=== PATIENT | female | born 2000 | race Caucasian/White ===

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

== ENCOUNTER 2019-02-10 15:53 | Emergency (ER) | payer OTHER ==
--- NOTE | 2019-02-10 16:14 | PDOC ---
History of Present Illness - General Chief Complaint: Syncope/Near Syncope Stated Complaint: SYNCOPE Time Seen by Provider: 02/10/19 16:00 - History of Present Illness Initial Comments: 02/10/19 16:10 18 yo F with no significant pmh BIBEMS with lightheadedness. EMS reports patient with complaint of lightheadedness. Noted to be diaphoretic, rapid breathing on arrival. Patient also with SBP 103, finger stick glucose 120. Patient received 400 ml NS. At approximately 2:00 PM patient states that she was standing at bus[place] on the way to work when she started having racing thoughts, then SOB, numbness/burning in fingertips and toes, chest tightness/ pressure, and sudden LOC. Does not recall head trauma, but patient with posterior, unremitting, right sided headache. Patient does not recall how long she was unconscious. Was assisted to feet and ambulated to bus. While on bus, patient symptoms recurred with absent LOC, and patient got off bus, and called EMS. Symptoms now gradually improved. Similar presentation 02-24-18 with negative CTH. Patient denies vision change, palpitations, convulsions, cough, wheezing, orthopena, PND, leg swelling/pain, N/V, F,C, urinary complaints, hematuria, BPR , abdominal pain, diarrhea, constipation, weakness. PMHx: as noted above ROS: as noted SHx: Denies Etoh, IVDA, tobacco use Allergies: NKDA Past History - Past Medical History Allergies/Adverse Reactions: Allergies Allergy/AdvReac Type Severity Reaction Status Date / Time No Known Allergies Allergy Verified 02/10/19 16:47 Home Medications: Ambulatory Orders NK [No Known Home Medication] 02/25/18 COPD: No - Suicide/Smoking/Psychosocial Hx Smoking History: Never smoked Have you smoked in the past 12 months: No Hx Alcohol Use: No Drug/Substance Use Hx: No Substance Use Type: None Review of Systems - Review of Systems Comments:: 02/10/19 16:10 GENERAL/CONSTITUTIONAL: No fever or chills. No weakness. HEAD, EYES, EARS, NOSE AND THROAT: No change in vision. No ear pain or discharge. No sore throat. CARDIOVASCULAR: No chest pain or shortness of breath RESPIRATORY: No cough, wheezing, or hemoptysis. GASTROINTESTINAL: No nausea, vomiting, diarrhea or constipation. GENITOURINARY: No dysuria, frequency, or change in urination. MUSCULOSKELETAL: No joint or muscle swelling or pain. No neck or back pain. SKIN: No rash NEUROLOGIC: No headache, vertigo, loss of consciousness, or change in strength/ sensation. ENDOCRINE: No increased thirst. No abnormal weight change HEMATOLOGIC/LYMPHATIC: No anemia, easy bleeding, or history of blood clots. ALLERGIC/IMMUNOLOGIC: No hives or skin allergy. *Physical Exam - Vital Signs Last Vital Signs Temp Pulse Resp BP Pulse Ox 97.7 F 69 16 105/52 L 100 02/10/19 16:00 02/10/19 16:00 02/10/19 16:00 02/10/19 16:00 02/10/19 16:00 - Physical Exam Comments: 02/10/19 16:11 GENERAL: Awake, alert, and fully oriented, in no acute distress HEAD: + right posterior occipital ttp. No signs of trauma, normocephalic, atraumatic EYES: PERRLA, EOMI, sclera anicteric, conjunctiva clear ENT: Neg c-spine ttp. Auricles normal inspection, hearing grossly normal, nares patent, oropharynx clear without exudates. Moist mucosa NECK: Normal ROM, supple, no lymphadenopathy, JVD, or masses LUNGS: No distress, speaks full sentences, clear to auscultation bilaterally HEART: Regular rate and rhythm, normal S1 and S2, no murmurs, rubs or gallops, peripheral pulses normal and equal bilaterally. ABDOMEN: Soft, nontender, normoactive bowel sounds. No guarding, no rebound. No masses BACK: Neg midline or paraspinal ttp. Neg stepoff, bony deformity, skin change. Nml axilla. EXTREMITIES : Normal inspection, Normal range of motion, no edema. No clubbing or cyanosis. NEUROLOGICAL: Cranial nerves II through XII grossly intact. Normal speech, normal gait, no focal sensorimotor deficits SKIN: Warm, Dry, normal turgor, no rashes or lesions noted ED Treatment Course - LABORATORY CBC & Chemistry Diagram: 02/10/19 16:50 02/10/19 16:50 - ADDITIONAL ORDERS Additional order review: Laboratory Results 02/10/19 02/10/19 02/10/19 17:30 16:50 16:50 Sodium 142 Potassium 3.8 Chloride 111 H Carbon Dioxide 21 Anion Gap 9 BUN 11.0 Creatinine 0.7 Est GFR (CKD-EPI)AfAm 145.58 Est GFR (CKD-EPI)NonAf 125.60 Random Glucose 77 Calcium 8.9 Total Bilirubin 0.8 AST 14 L ALT 17 Alkaline Phosphatase 90 Creatine Kinase 104 Troponin I < 0.02 Total Protein 7.8 Albumin 4.2 TSH 1.07 Serum , Qual Urine Color [place] Urine Appearance Cloudy Urine pH 6.5 D Ur Specific [place] 1.015 Urine Protein 1+ H Urine Glucose (UA) Negative Urine Ketones 3+ H Urine Blood 3+ H Urine Nitrite Negative Urine Bilirubin Negative Urine Urobilinogen 1.0 Ur Leukocyte Esterase Trace Urine WBC (Auto) 14 Urine RBC (Auto) 14 Urine Casts (Auto) 15 U Epithel Cells (Auto) 14.3 Urine Bacteria (Auto) 472.9 02/10/19 16:50 Sodium Potassium Chloride Carbon Dioxide Anion Gap BUN Creatinine Est GFR (CKD-EPI)AfAm Est GFR (CKD-EPI)NonAf Random Glucose Calcium Total Bilirubin AST ALT Alkaline Phosphatase Creatine Kinase Troponin I Total Protein Albumin TSH Serum , Qual Negative Urine Color Urine Appearance Urine pH Ur Specific [place] Urine Protein Urine Glucose (UA) Urine Ketones Urine Blood Urine Nitrite Urine Bilirubin Urine Urobilinogen Ur Leukocyte Esterase Urine WBC (Auto) Urine RBC (Auto) Urine Casts (Auto) U Epithel Cells (Auto) Urine Bacteria (Auto) 02/10/19 16:50 RBC 4.42 MCV 84.6 MCHC 33.2 RDW 14.2 MPV 7.7 Neutrophils % 80.7 D Lymphocytes % 10.8 D Monocytes % 7.8 Eosinophils % 0.2 D Basophils % 0.5 - RADIOLOGY Radiology Studies Ordered: Category Date Time Status HEAD CT WITHOUT CONTRAST [CT] Stat CT Scan 02/10/19 18:11 Taken - Medications Given in the ED: ED Medications Discontinued Medications Generic Name Dose Route Start Last Admin Trade Name Freq PRN Reason Stop Dose Admin Acetaminophen 1,000 mg 02/10/19 16:46 02/10/19 16:55 Ofirmev Injection - IVPB 02/10/19 16:47 1,000 mg ONCE ONE Administration Sodium Chloride 1,000 mls @ 1,000 mls/hr 02/10/19 16:46 02/10/19 16:55 Normal Saline - IV 02/10/19 17:45 1,000 mls/hr ASDIR STA Administration Sodium Chloride 1,000 ml 02/10/19 19:24 02/10/19 19:50 Normal Saline - IV 02/10/19 19:25 1,000 ml ONCE ONE Administration Medical Decision Making - Medical Decision Making 02/10/19 16:11 18 yo F with no significant pmh BIBEMS with lightheadedness. Vitals wnl, AF, A& Ox3. Physical exam notable for slight riht posterior-superior occiput ttp. Will assess for vasgoval/neurocardiogenic syncope vs. cardiac dysarrythmias, hypoglycemia, electrolyte abnml, metabolic and toxic derangements, acid-base disturbances, infection. Ed Course: 02/10/19 18:12 Laboratory Tests 02/10/19 02/10/19 16:50 16:50 WBC 7.9 Hgb 12.4 Hct 37.4 Troponin I < 0.02 TSH 1.07 02/10/19 19:08 EKG: NSR with absent PATTIE, STD. Nml interval duration and axis. Nml R wave progression. Absent Q waves. 02/10/19 19:31 CTH: Unremarkable Patient tolerating PO intake. Stable for d/c with return precautions. *DC/Admit/Observation/Transfer Diagnosis at time of Disposition: Pre-syncope - Referrals - Patient Instructions Printed Discharge Instructions: DI for Syncope in Adults (Fainting) Additional Instructions: Please return to the emergency department with any new or worsening symptoms or concerns. Please follow up with your primary care physician within 72 hours. - Post Discharge Activity Forms/Work/School Notes: Back to Work
[2019-02-10] MEDS ORDERED: SODIUM CHLORIDE 1,000 ML IV STA (16:46)
[2019-02-10] MEDS ORDERED: ACETAMINOPHEN 1000 MG/100 ML VIAL (NON FORMULARY) IVPB ONE (16:46)
[2019-02-10 16:47] VITALS: TEMP 97.7; BMI 24.2
[2019-02-10] MEDS ORDERED: ACETAMINOPHEN INJECTION 100 ML IVPB ONE (16:50)
[2019-02-10 17:33] LABS: ALBUMIN 4.2 g/dl (3.4-5.0); BILIRUBIN,TOTAL 0.8 mg/dL (0.2-1); CALCIUM 8.9 mg/dL (8.5-10.1); CREATININE 0.7 mg/dL (0.55-1.3); POTASSIUM 3.8 mmol/L (3.5-5.1); TOT PROT 7.8 g/dl (6.4-8.2)
[2019-02-10 17:37] LABS: BASO % 0.5 % (0-2.0); EOS % 0.2 % (0-4.5); HEMATOCRIT 37.4 % (32.4-45.2); HEMOGLOBIN 12.4 GM/dL (10.7-15.3); LYMPH % 10.8 % (8-40); MCH 28.1 pg (25.7-33.7); MCHC 33.2 g/dl (32.0-36.0); MEAN CELL VOLUME 84.6 fl (80-96); MEAN PLT VOLUME 7.7 fl (7.5-11.1); MONO % 7.8 % (3.8-10.2); NEUT % 80.7 % (42.8-82.8); RBC 4.42 M/mm3 (3.60-5.2); RDW 14.2 % (11.6-15.6); WHITE BLOOD COUNT 7.9 K/mm3 (4.0-10.0)
[2019-02-10 18:16] LABS: EPI CELLS 14.3 /HPF (0-5/HPF); HYALINE CASTS 15 /lpf (0-8); PH,URINE 6.5 (5.0-8.0); URINE APPEARANCE CLOUDY; URINE BACTERIA 472.9 /hpf (NEGATIVE); URINE BILIRUBIN NEGATIVE (NEGATIVE); URINE COLOR ORANGE; URINE GLUCOSE (UA) NEGATIVE (NEGATIVE); URINE KETONE 3+ (NEGATIVE); URINE LEUK ESTERASE TRACE (NEGATIVE); URINE NITRITE NEGATIVE (NEGATIVE); URINE PROTEIN 1+ (NEGATIVE); URINE RBC 14 /hpf (0-4); URINE WBC 14 /hpf (0-5)
[2019-02-10 18:37] LABS: PLATELET COUNT 322 K/MM3 (134-434)
--- NOTE | 2019-02-10 18:53 | PDOC ---
Documentation entered by Jim Dodge SCRIBE, acting as scribe for Priscila Cruz MD. Priscila Cruz MD: This documentation has been prepared by the Dar calderón Elijah, SCRIBE, under my direction and personally reviewed by me in its entirety. I confirm that the documentation accurately reflects all work, treatment, procedures, and medical decision making performed by me. Attending Attestation - Resident Resident Name: Nacho Garcia - ED Attending Attestation I have performed the following: I have examined & evaluated the patient, The case was reviewed & discussed with the resident, I agree w/resident's findings & plan - HPI HPI: 02/10/19 17:44 The patient is a 18 year old female with no reported significant medical history who presents to the ED via EMS s/p syncope around 2:00 pm today. The patient reports, while waiting for the bus, she had a sudden onset of lightheadedness that was associated with shortness of breath, chest pain, chest tightness, diaphoresis, numbness and tingling. The patient reports then having an episode of syncope, unsure head injury, currently reports a posterior headache. The patient then got on the bus, had one episode of vomiting. The patient reports that she felt as if this was brought on by racing thoughts of personal matters and notes a previous episode occurring in 2013, was seen at the ER with a negative head CT. Patient was noted to be hypotensive when EMS arrived, was given 400 cc of fluids. The patients glucose on field was 120. Denies fever and chills. Allergies: NKA - Physicial Exam PE: 02/10/19 17:44 GENERAL: Awake, alert, and fully oriented, in no acute distress HEAD: No signs of trauma EYES: PERRLA, EOMI, sclera anicteric, conjunctiva clear ENT: Auricles normal inspection, hearing grossly normal, nares patent, oropharynx clear without exudates. Moist mucosa NECK: Normal ROM, supple, no lymphadenopathy, JVD, or masses LUNGS: Breath sounds equal, clear to auscultation bilaterally. No wheezes, and no crackles HEART: Regular rate and rhythm, normal S1 and S2, no murmurs, rubs or gallops ABDOMEN: Soft, nontender, normoactive bowel sounds. No guarding, no rebound. No masses EXTREMITIES: Normal range of motion, no edema. No clubbing or cyanosis. No cords, erythema, or tenderness NEUROLOGICAL: Cranial nerves II through XII grossly intact. Normal speech SKIN: Warm, Dry, normal turgor, no rashes or lesions noted. - Medical Decision Making 02/10/19 18:45 Pt presents to the ED complaining of syncope today. Syncope occurred in the midst of what seems to be an acute anxiety reaction, and patient has had similar events in the past. Patient is now asymptomatic. Differential includes vasovagal episode, less likely cardiac arrythmia, less likely ectopic . Will check labs and EKG and reassess.
[2019-02-10] MEDS ORDERED: SODIUM CHLORIDE 0.9% 500 ML INFUS.BAG IV ONE (19:24)
[2019-02-10 20:28] VITALS: BP 125/62; PULSE 82
--- NOTE | 2019-02-12 17:16 | EKG ---
Test Reason : Blood Pressure : / mmHG Vent. Rate : 095 BPM Atrial Rate : 095 BPM P-R Int : 138 ms QRS Dur : 086 ms QT Int : 364 ms P-R-T Axes : 046 022 028 degrees QTc Int : 457 ms NORMAL SINUS RHYTHM NORMAL ECG WHEN COMPARED WITH ECG OF 25-FEB-2018 13:53, NO SIGNIFICANT CHANGE WAS FOUND Confirmed by MD SANJUANA, TERE ([id number]) on 02/12/2019 5:15:52 PM Referred By: Confirmed By:TERE WEI MD
== END 2019-02-10 20:28 | disposition home or self-care (01) ==
LOC: JER 15:53
PROC: 3E0337Z Introduction of Electrolytic and Water Balance Substance into Peripheral Vein, Percutaneous Approach (ICD-10-PCS; principal; 2019-02-10)
PROC: 3E033NZ Introduction of Analgesics, Hypnotics, Sedatives into Peripheral Vein, Percutaneous Approach (ICD-10-PCS; 2019-02-10)
DX: R55 Syncope and collapse (principal)
CPT/HCPCS: 36415; 70450-TC; 80053; 81003; 82550; 84443; 84484; 84703; 85025; 93005; 93010; 96361; 96374; 99283-25; J0131; J7030

== ENCOUNTER 2022-09-11 22:16 | Emergency (ER) | payer OTHER ==
[2022-09-11 22:30] VITALS: BP 110/75; PULSE 81; RESP 18; TEMP 97.8; BMI 36.9
[2022-09-11] MEDS ORDERED: ACETAMINOPHEN 325 MG TABLET (FP) PO ONE (23:23)
[2022-09-11] MEDS ORDERED: LIDOCAINE 5% TOPICAL PATCH TP ONE (23:23)
[2022-09-11] MEDS ORDERED: ACETAMINOPHEN 325 MG TABLET (FP) ONE (23:52)
[2022-09-11] MEDS ORDERED: LIDOCAINE 5% TOPICAL PATCH ONE (23:53)
== END 2022-09-12 00:02 | disposition home or self-care (01) ==
LOC: JER 22:16
DX: M54.50 Low back pain, unspecified (principal); V49.50XA Passenger injured in collision with unspecified motor vehicles in traffic accident, initial encounter
CPT/HCPCS: 99283-25

== ENCOUNTER 2024-01-31 21:18 | Emergency (ER) | payer SELFPAY ==
[2024-01-31 21:22] VITALS: BP 114/77; PULSE 68; RESP 17; TEMP 98.5; BMI 28.6
[2024-01-31] MEDS ORDERED: METOCLOPRAMIDE HCL INJECTION 10 MG/2 ML VIAL ONE (22:31)
[2024-01-31] MEDS ORDERED: ACETAMINOPHEN INJECTION 100 ML IVPB ONE (22:31)
[2024-01-31] MEDS: SODIUM CHLORIDE 1,000 ML IV STA (22:48)
[2024-01-31] MEDS: ACETAMINOPHEN 1000 MG/100 ML BAG IVPB ONE (22:49)
[2024-01-31] MEDS: METOCLOPRAMIDE HCL INJECTION 10 MG/2 ML VIAL IVPUSH ONE (22:50)
[2024-01-31 22:53] LABS: BASO % 0.4 % (0-2.0); HEMATOCRIT 36.3 % (32.4-45.2); HEMOGLOBIN 12.2 GM/dL (10.7-15.3); MCH 29.2 pg (25.7-33.7); MCHC 33.6 g/dl (32.0-36.0); MEAN PLT VOLUME 7.2 fl (7.5-11.1); MONO % 14.7 % (3.8-10.2); NEUT % 71.9 % (42.8-82.8); PLATELET COUNT 295 10^3/uL (134-434); RBC 4.17 M/mm3 (3.60-5.2); RDW 14.3 % (11.6-15.6); WHITE BLOOD COUNT 4.7 K/mm3 (4.0-10.0)
[2024-01-31 23:11] LABS: POTASSIUM 3.8 mmol/L (3.5-5.1)
[2024-01-31 23:13] LABS: ALBUMIN 4.1 g/dl (3.4-5.0); CALCIUM 9.6 mg/dL (8.5-10.1)
[2024-01-31 23:15] LABS: INR 1.16 (0.83-1.09)
[2024-01-31 23:16] LABS: CREATININE 0.7 mg/dL (0.55-1.3)
[2024-01-31 23:17] LABS: ACTIVATED PTT 31.8 SECONDS (25.2-36.5)
[2024-01-31 23:18] LABS: BILIRUBIN,TOTAL 0.9 mg/dL (0.2-1); TOT PROT 7.5 g/dl (6.4-8.2)
[2024-01-31] MEDS ORDERED: ACETAMINOPHEN 325 MG TABLET (FP) ONE (23:51)
[2024-01-31] MEDS: ACETAMINOPHEN 325 MG TABLET (FP) PO ONE (23:54)
== END 2024-02-01 00:02 | disposition home or self-care (01) ==
LOC: JERFT 21:18 → JER 21:18
PROC: 3E033NZ Introduction of Analgesics, Hypnotics, Sedatives into Peripheral Vein, Percutaneous Approach (ICD-10-PCS; principal; 2024-01-31)
PROC: 3E033GC Introduction of Other Therapeutic Substance into Peripheral Vein, Percutaneous Approach (ICD-10-PCS; 2024-01-31)
PROC: 3E0337Z Introduction of Electrolytic and Water Balance Substance into Peripheral Vein, Percutaneous Approach (ICD-10-PCS; 2024-01-31)
DX: R51.9 Headache, unspecified (principal); R07.9 Chest pain, unspecified; R06.02 Shortness of breath; R11.0 Nausea; U07.1 COVID-19
CPT/HCPCS: 0241U-QW; 36415; 71046-TC-FY; 80053; 84484; 85025; 85610; 85730; 93005; 93010; 99285-25; J0131

== ENCOUNTER 2024-03-04 17:56 | Emergency (ER) | payer OTHER ==
[2024-03-04 18:24] VITALS: BP 96/59; PULSE 68; RESP 20; TEMP 98.3; BMI 31.4
[2024-03-04] MEDS ORDERED: IBUPROFEN 400 MG TABLET (FP) PO ONE (20:05)
[2024-03-04] MEDS ORDERED: CYCLOBENZAPRINE HCL 10 MG TABLET (FP) ONE (20:05)
[2024-03-04] MEDS ORDERED: LIDOCAINE 4% PATCH TP ONE (20:05)
[2024-03-04] MEDS: LIDOCAINE 5% TOPICAL PATCH TP ONE (20:10)
[2024-03-04] MEDS: CYCLOBENZAPRINE HCL 10 MG TABLET (FP) PO ONE (20:10)
[2024-03-04] MEDS: IBUPROFEN 400 MG TABLET (FP) PO ONE (20:11)
[2024-03-04] MEDS ORDERED: LIDOCAINE PATCH REMOVAL MC SCH (22:00)
== END 2024-03-04 20:39 | disposition home or self-care (01) ==
LOC: JERFT 17:56
DX: M62.838 Other muscle spasm (principal); M54.9 Dorsalgia, unspecified; R11.0 Nausea; V49.50XA Passenger injured in collision with unspecified motor vehicles in traffic accident, initial encounter
CPT/HCPCS: 99283-25

== ENCOUNTER 2024-07-02 15:51 | Emergency (ER) | payer SELFPAY ==
[2024-07-02 16:09] VITALS: BP 105/59; PULSE 79; RESP 18; TEMP 97.7; BMI 28.8
== END 2024-07-02 18:28 | disposition home or self-care (01) ==
LOC: JER 15:51 → JERFT 15:51
DX: H61.22 Impacted cerumen, left ear (principal)
CPT/HCPCS: 99283-25